=== PATIENT | female | born 1995 | race Caucasian/White ===

== ENCOUNTER 2018-05-04 12:36 | Emergency (ER) | payer BC ==
[~2018-05-04] VITALS: Ht 152.4 cm; Wt 96.6 kg
[2018-05-04 12:40] VITALS: BP 157/93; Ht 152.4 cm; Wt 96.6 kg
== END 2018-05-04 14:42 | disposition home or self-care (01) ==
LOC: ED 12:36
DX: H66.92 Otitis media, unspecified, left ear (principal)

== ENCOUNTER 2018-07-22 08:38 | Emergency (ER) | payer BC ==
[~2018-07-22] VITALS: Ht 152.4 cm; Wt 96.6 kg
[2018-07-22 09:08] VITALS: Ht 152.4 cm; Wt 96.6 kg
[2018-07-22 11:43] VITALS: BP 125/69
== END 2018-07-22 11:43 | disposition home or self-care (01) ==
LOC: ED 08:38
DX: T19.2XXA Foreign body in vulva and vagina, initial encounter (principal); N93.9 Abnormal uterine and vaginal bleeding, unspecified; X58.XXXA Exposure to other specified factors, initial encounter; Y93.89 Activity, other specified; Y92.89 Other specified places as the place of occurrence of the external cause; Y99.8 Other external cause status